=== PATIENT | male | born 1985 ===

== ENCOUNTER 2020-07-04 11:32 | Emergency (ER) | payer SELFPAY ==
[~2020-07-04] VITALS: Ht 175.3 cm; Wt 88.6 kg
[2020-07-04 11:49] VITALS: BP 150/95
== END 2020-07-04 11:56 | disposition left against medical advice (07) ==
LOC: EMS 11:34
DX: F11.90 Opioid use, unspecified, uncomplicated (principal); Z53.21 Procedure and treatment not carried out due to patient leaving prior to being seen by health care provider

== ENCOUNTER 2025-05-23 19:30 | Emergency (ER) | payer OTHER ==
[~2025-05-23] VITALS: Ht 172.7 cm; Wt 86.0 kg
[2025-05-23 19:43] VITALS: BP 151/82; PULSE 81; RESP 18; TEMP 98.2; O2SAT 99
[2025-05-23] MEDS: ACETAMINOPHEN 500 MG TABLET PO ONE (21:12)
[2025-05-23] MEDS: KETOROLAC TROMETHAMINE 60 MG/2 ML VIAL IM ONE (21:12)
[2025-05-23] MEDS ORDERED: IBUP-1554 PO (22:26)
[2025-05-23] MEDS ORDERED: ACET-66 PO (22:26)
== END 2025-05-23 22:54 | disposition home or self-care (01) ==
LOC: EMS 19:30
DX: S83.92XA Sprain of unspecified site of left knee, initial encounter (principal); M79.671 Pain in right foot; J45.909 Unspecified asthma, uncomplicated; F17.210 Nicotine dependence, cigarettes, uncomplicated; F12.90 Cannabis use, unspecified, uncomplicated; F15.90 Other stimulant use, unspecified, uncomplicated; F11.90 Opioid use, unspecified, uncomplicated; Z88.8 Allergy status to other drugs, medicaments and biological substances; V89.2XXA Person injured in unspecified motor-vehicle accident, traffic, initial encounter; Y93.89 Activity, other specified; Y92.89 Other specified places as the place of occurrence of the external cause; Y99.8 Other external cause status
CPT/HCPCS: 99283; 29505; 73562; 96372; J1885; 29530